=== PATIENT | female | born 1975 | race Caucasian/White ===

== ENCOUNTER 2017-04-09 19:29 | Emergency (ER) | payer BC ==
[2017-04-09] MEDS ORDERED: Acetaminophen/Codeine 300-30 MG Tab ONE (19:55)
[2017-04-09] MEDS ORDERED: Amoxicillin 500 MG Cap ONE (19:55)
[2017-04-09] MEDS ORDERED: Acetaminophen/Codeine 300-30 MG Tab PO PRN (20:08)
[2017-04-09] MEDS ORDERED: Amoxicillin 500 MG Cap PO SCH (20:15)
--- NOTE | 2017-04-10 02:20 | ER ---
HISTORY OF PRESENT ILLNESS: The patient was in her usual state of health until this evening when she bit into a hard candy and cracked her right lower molar. She is here because she has discomfort from the pain of the cracked tooth. REVIEW OF SYSTEMS: CONSTITUTIONAL: The patient denies any fever, weight loss, fatigue. HEENT: No vision changes. No nasal congestion, sore throat, or ear pain. CARDIOVASCULAR: No chest pain or palpitations. RESPIRATORY: No coughing or shortness of breath or wheezing. GI: No nausea, vomiting, diarrhea, constipation, heartburn, or rectal bleeding. : No dysuria. MUSCULOSKELETAL: No joint inflammation or decreased range of motion. SKIN: No rashes. NEURO: No numbness, focal weakness, or headache. PSYCH: No complaints of depression. PHYSICAL EXAMINATION: GENERAL: Well-developed, well-nourished, obese female, alert and oriented x3, in no acute distress. VITAL SIGNS: Upon admission to the emergency room shows a temperature of 96.9, heart rate 86, blood pressure 171/106, 99% saturated on room air. EYES: Show EOMI, PERRLA. Conjunctiva and lids are normal. ENT: Nose are clear. TMs are clear. Throat is clear. Mucosa and tongue are normal. Her right lower molar is cracked. Her gums show demario pus to be present on the lateral aspect adjacent to her diseased tooth. NECK: Symmetrical. No masses. No thyromegaly. No bruits. LYMPH: Shows no adenopathy present. LUNGS: Clear. HEART: Regular rate and rhythm. No murmurs, rubs, or gallops. No S3, no S4. ABDOMEN: Benign, soft, obese, nontender. BACK: No CVA or cord tenderness. EXTREMITIES: Show no clubbing, cyanosis, or edema. SKIN: Shows no rashes or sores. PSYCH: Exam is normal. Good judgment and insight. ASSESSMENT: Right molar with abscess and cracked tooth, elevated blood pressure secondary due to pain. PLAN: The patient will follow up her blood pressure with her local physician. [place]. She will be started on amoxicillin 500 mg p.o. t.i.d. for 10 days and Tylenol No. 3 p.r.n. pain if Advil [id number] is not effective. She will call her dentist in the morning and arrange for her tooth to be extracted. JOSY/ALESSANDRA /[id number]
== END 2017-04-09 20:20 | disposition home or self-care (01) ==
LOC: LB.ED 19:29
DX: K04.7 Periapical abscess without sinus (principal); K03.81 Cracked tooth; R03.0 Elevated blood-pressure reading, without diagnosis of hypertension
CPT/HCPCS: 99282; A9270